=== PATIENT | male | born 1960 | race Caucasian/White ===

== ENCOUNTER 2018-06-05 05:15 | Emergency (ER) | payer MEDICAID ==
[~2018-06-05] VITALS: Ht 182.9 cm; Wt 68.2 kg
[2018-06-05 05:19] VITALS: Ht 182.9 cm; Wt 68.2 kg
[2018-06-05 06:18] VITALS: BP 145/88
== END 2018-06-05 06:15 | disposition home or self-care (01) ==
LOC: D.ER 05:15
DX: T68.XXXA Hypothermia, initial encounter (principal); X31.XXXA Exposure to excessive natural cold, initial encounter; F99 Mental disorder, not otherwise specified; F91.9 Conduct disorder, unspecified; F17.200 Nicotine dependence, unspecified, uncomplicated